=== PATIENT | female | born 1945 | race African-American/Black ===

== ENCOUNTER 2022-11-18 23:07 | Emergency (ER) | payer MEDICARE, OTHER ==
[~2022-11-18] VITALS: Ht 152.4 cm; Wt 95.0 kg
[2022-11-18 23:27] VITALS: O2SAT 100
[2022-11-18 23:58] VITALS: BP 147/87; PULSE 71; RESP 18; TEMP 98.3
== END 2022-11-19 04:46 | disposition left against medical advice (07) ==
LOC: ER 23:29
DX: Z53.21 Procedure and treatment not carried out due to patient leaving prior to being seen by health care provider (principal)
CPT/HCPCS: 99281

== ENCOUNTER 2023-03-19 18:53 | Emergency (ER) | payer OTHER ==
[~2023-03-19] VITALS: Ht 167.6 cm; Wt 90.0 kg
[2023-03-19 18:56] VITALS: BP 162/88; O2SAT 100
[2023-03-19] MEDS ORDERED: ACETAMINOPHEN 325MG TABLET PO STA (19:01)
[2023-03-19] MEDS ORDERED: ACETAMINOPHEN 325MG TABLET PO NR (20:15)
[2023-03-19] MEDS ORDERED: CYCL10TA21 MT (20:57)
[2023-03-19] MEDS ORDERED: TOPUD MT (20:57)
[2023-03-19 21:08] VITALS: PULSE 90; RESP 18; TEMP 98.5
== END 2023-03-19 21:08 | disposition home or self-care (01) ==
LOC: ER 18:53
DX: S40.012A Contusion of left shoulder, initial encounter (principal); S09.90XA Unspecified injury of head, initial encounter; I10 Essential (primary) hypertension; Z98.890 Other specified postprocedural states; V99.XXXA Unspecified transport accident, initial encounter; Y93.89 Activity, other specified; Y92.89 Other specified places as the place of occurrence of the external cause; Y99.8 Other external cause status
CPT/HCPCS: 73030; 99284